=== PATIENT | female | born 1985 | race Caucasian/White ===

== ENCOUNTER 2019-12-24 15:26 | Outpatient (CLI) | payer OTHER, SELFPAY ==
--- NOTE | 2019-12-24 | ECG_ITS ---
Measurements Intervals [place] Rate: 63 P: 52 WA: 164 QRS: -14 QRSD: 97 T: -9 QT: 415 QTc: 426 Interpretive Statements SINUS RHYTHM INCOMPLETE RIGHT BUNDLE BRANCH BLOCK DELAYED PRECORDIAL R/S TRANSITION BORDERLINE ST-T WAVE ABNORMALITY- ANT/INF LEADS BORDERLINE ECG Electronically Signed On 12-24-2019 20:08:01 MOLD SETTER by Derick Dhillon D.O.
[2019-12-24 16:09] LABS: Alanine Aminotransferase 24 U/L (4-35); Albumin Level 4.2 g/dL (3.5-5.1); Alkaline Phosphatase 69 U/L (38-126); Amylase 66 U/L (30-110); Aspartate Amino Transferase 32 U/L (14-36); Bilirubin,Total 0.4 mg/dL (0.2-1.3); Blood Urea Nitrogen 19 mg/dL (7-17); Calcium 8.7 mg/dL (8.4-10.2); Carbon Dioxide 28 mmol/L (22-30); Chloride 100 mmol/L (98-107); Estimated Glomerular Filt Rate > 60; Glucose 85 mg/dL (65-105); Lipase 126 U/L (23-300); Potassium 3.8 mmol/L (3.4-5.0); Sodium 140 mmol/L (137-145)
[2019-12-24 17:01] LABS: Vitamin D 25 Hydroxy 29.7 ng/mL
[2019-12-24 17:17] LABS: Folic Acid 6.4 ng/mL (2.76->20)
== END 2019-12-24 15:27 | disposition home or self-care (01) ==
LOC: ANHLAB 15:29
PROVIDERS: PCP Nurse Practitioner; Visit Provider Nurse Practitioner
DX: R53.83 Other fatigue (principal); R10.9 Unspecified abdominal pain; M25.512 Pain in left shoulder
CPT/HCPCS: 36415; 80053; 82150; 82306; 82607; 82746; 83690; 93005

== ENCOUNTER 2020-03-22 19:09 | Emergency (ER) | payer OTHER, SELFPAY ==
--- NOTE | ~2020-03-22 | XR_ITS ---
EXAMINATION: XR foot LT min 3V EXAM DATE: 03/22/2020 20:03 INDICATION: Swelling all over left foot for one week. No known recent injury provided at this time. TECHNIQUE: Left foot dorsoplantar, lateral and oblique projections obtained and reviewed. There is n o prior study for comparison. FINDINGS: Left metatarsal bones unremarkable. There are no bony erosions identified. There are no acute fractures or dislocations identified. There is no subcutaneous gas. The soft tissue is unrema rkable. There are no radiopaque foreign bodies. IMPRESSION: 1. Unremarkable left foot exam. Reviewed, dictated and finalized at location A.
[2020-03-22 19:10] VITALS: BP 134/75; PULSE 77; RESP 16; TEMP 36.1; O2SAT 99
--- NOTE | 2020-03-22 19:54 | ED.LOWEXIN ---
HPI - Extremity Injury (Lower) General Chief Complaint: Extremity Injury, Lower Stated Complaint: foot swollen Time Seen by Provider: 03/22/20 19:33 Source: patient Mode of arrival: ambulatory Limitations: no limitations History of Present Illness HPI Narrative: This patient is a 34 year old female who presents for evaluation of left foot pain and swelling. PAtient noticed 1 week ago that she developed swelling to left inner foot. She also reports pain with walking on her foot. She denies injury, redness or fever. She states she took tylenol without improvement. Her significant other applied ice today. complaint: foot injury Related Data Allergies Allergy/AdvReac Type Severity Reaction Status Date / Time No Known Allergies Allergy Verified 03/22/20 19:12 Review of Systems Review of Systems: All systems reviewed & are unremarkable except as noted in HPI and below Constitutional: Constitutional: Denies chills and Denies fever(s) Musculoskeletal: Comments: left foot pain swelling PMFSH Social History Social History (Updated 03/22/20 @ 19:55 by Breanne Braxton MD) Smoking status: Never smoker Alcohol use details: occasional Substance use: never Gender identity (if verbalized by the patient): Female Exam Const: General: no acute distress and alert Orientation/consciousness: patient oriented x3 Eyes: EOM: EOMs intact bilaterally Resp: Effort & Inspection: normal respiratory effort Skin: General skin exam: normal color Rashes: no rashes Wounds: no wounds Neuro: General: patient oriented x3 Extrem: Other: left foot with mild tenderness to palpation medial foot and dorsum, no erythema, no significan swelling, no tenderness or swelling involving ankle. Course Reevaluation(s) Reevaluation #1: I have discussed with patient xray is unremarkable. Will treat like tendonitis Date: 03/22/20 Time: 20:57 Vital Signs Vital signs: Vital Signs Temperature 97 F L 03/22/20 19:10 Pulse Rate 77 03/22/20 19:10 Respiratory Rate 16 03/22/20 19:10 Blood Pressure 134/75 03/22/20 19:10 Pulse Oximetry 99 03/22/20 19:10 Temperature 97 F L 03/22/20 19:10 Pulse Rate 74 03/22/20 21:25 Respiratory Rate 16 03/22/20 21:25 Blood Pressure 127/72 03/22/20 21:25 Pulse Oximetry 99 03/22/20 21:25 MDM - Extremity Injury (Lower) Imaging Data Radiologist's impression: ITS Impressions Foot X-Ray 03/22/20 20:12 IMPRESSION: 1. Unremarkable left foot exam. Discharge Plan Discharge Clinical Impression: Localized swelling of left foot Patient Disposition: Home, Self-Care Condition: Stable Instructions: Antibiotic Form, Tenosynovitis (ED), Arthralgia (ED) Additional Instructions: Today you were evaluated for foot pain and swelling. Take NSAIDs such as ibuprofen, motrin or aleve for your pain and swelling. This is likely due to inflammation involving tendon or muscle. Call your primary care physician within 1 week for evaluation if symptoms do not improve. Follow-up/Referrals: Galindo,CHERYL Soto-SAGE [Primary Care Provider] - Discharge Date/Time: 03/22/20 21:26
[2020-03-22] MEDS: IBUPROFEN 600 MG TABLET PO (20:07)
[2020-03-22 21:25] VITALS: BP 127/72; PULSE 74; RESP 16; O2SAT 99
== END 2020-03-22 21:26 | disposition home or self-care (01) ==
PROVIDERS: Emergency Provider General Practice; PCP Nurse Practitioner
DX: M79.89 Other specified soft tissue disorders (principal)
CPT/HCPCS: 73630; 99283; A9270

== ENCOUNTER 2020-09-20 09:18 | Emergency (ER) | payer OTHER, SELFPAY ==
[2020-09-20 09:27] VITALS: BP 131/56; PULSE 77; RESP 16; TEMP 36.5; O2SAT 99
--- NOTE | 2020-09-20 09:38 | ED.EAR ---
HPI - Ear Problem General Chief complaint: Ear Stated complaint: Earache Time Seen by Provider: 09/20/20 09:32 Source: patient and RN notes reviewed Mode of arrival: ambulatory Limitations: no limitations History of Present Illness HPI Narrative: Patient presents today complaining of left ear pain since last night. Denies any decreased hearing or drainage from the ear. Denies any additional symptoms to include fever., Cough, nasal congestion or rhinorrhea, sore throat. Currently rates her ear pain 7/10 and has been taking Tylenol without relief. She had a left-sided tympanoplasty in August 2019, performed by Dr. Crabtree. No recent antibiotic use. MD Complaint: ear pain Related Data Allergies Allergy/AdvReac Type Severity Reaction Status Date / Time No Known Allergies Allergy Verified 09/20/20 09:32 Review of Systems Review of Systems: Narrative: CONSTITUTIONAL: Denies body aches, fever, chills, or sweats. EYES: Denies visual changes, redness, or discharge. ENT: Denies rhinorrhea, congestion, sore throat. + Left ear pain CARDIOVASCULAR: Denies chest pain, palpitations, or edema. RESPIRATORY: Denies cough or dyspnea. GASTROINTESTINAL: Denies abdominal pain, nausea, vomiting, or diarrhea. GENITOURINARY: Denies dysuria or hematuria. SKIN: Denies rash, itching, or wounds. MUSCULOSKELETAL: Denies back pain, joint pain, or myalgia. NEUROLOGIC: Denies headache, numbness, tingling, or weakness. PSYCH: Denies depression or anxiety. PMFSH Past Medical History Medical History (Updated 09/20/20 @ 09:46 by Ruth Ernst, [facility], ) Hypothyroidism Surgical History Surgical History (Updated 09/20/20 @ 09:40 by Ruth Ernst, [facility], ) History of tympanoplasty of left ear Social History Social History (Updated 03/22/20 @ 19:55 by Breanne Braxton MD) Smoking status: Never smoker Substance use: never Gender identity (if verbalized by the patient): Female Comments At time of signature, I have reviewed and agree with nursing past medical, surgical, social and family history unless otherwise noted. Please see nursing chart for further information. There is no relevant family history pertinent to the presenting complaint Exam Narrative: Exam Narrative: GENERAL: Well-appearing, well-nourished, and in no acute distress. HEAD: Normocephalic, atraumatic. EYES: EOMI. No redness or drainage. Conjunctivae normal. ENT: Mucous membranes pink and moist. Nares clear. No rhinorrhea. Right TM normal. Left ear: +tragal tenderness. TM is injected and bulging with green purulent material. Throat normal. Uvula midline. NECK: Normal AROM. Supple. No lymphadenopathy. CHEST: No respiratory distress. Clear to auscultation. HEART: Regular rate and rhythm. No murmur appreciated. Normal peripheral pulses. EXTREMITIES: Normal range of motion. No edema. SKIN: Warm, dry, no rash. Capillary refill normal. Normal skin turgor. NEURO: No focal deficits. Alert and oriented x3. Gait steady. PSYCH: Normal affect. No signs of depression or anxiety. Course Vital Signs Vital signs: Vital Signs Temperature 97.7 F 09/20/20 09:27 Pulse Rate 77 09/20/20 09:27 Respiratory Rate 16 09/20/20 09:27 Blood Pressure 131/56 L 09/20/20 09:27 Pulse Oximetry 99 09/20/20 09:27 Temperature 97.7 F 09/20/20 09:27 Pulse Rate 77 09/20/20 09:27 Respiratory Rate 16 09/20/20 09:27 Blood Pressure 131/56 L 09/20/20 09:27 Pulse Oximetry 99 09/20/20 09:27 Reviewed. Pt has been instructed to follow up with her PCP regarding her elevated blood pressure today. Medical Decision Making Differential Diagnosis Differential Diagnosis: Otitis media, otitis externa, ruptured TM, serous otitis, station tube dysfunction, cerumen impaction, URI Vital Signs Vital Signs: Vital Signs Temperature 97.7 F 09/20/20 09:27 Pulse Rate 77 09/20/20 09:27 Respiratory Rate 16 09/20/20 09:27 Blood Pressure 131/56 L 09/20/20 09:
== END 2020-09-20 09:50 | disposition home or self-care (01) ==
PROVIDERS: Emergency Provider Nurse Practitioner; PCP Nurse Practitioner Family
DX: H66.002 Acute suppurative otitis media without spontaneous rupture of ear drum, left ear (principal); E03.9 Hypothyroidism, unspecified
CPT/HCPCS: 99213; G0463

== ENCOUNTER 2021-02-23 13:30 | Emergency (ER) | payer OTHER, SELFPAY ==
[2021-02-23 13:32] VITALS: BP 143/86; PULSE 109; RESP 18; TEMP 36.1; O2SAT 100
--- NOTE | 2021-02-23 14:22 | ED.GENADULT ---
HPI - General Adult General Chief complaint: Skin/Abscess/Foreign Body Stated complaint: armpit absess Time Seen by Provider: 02/23/21 13:33 Source: patient and RN notes reviewed Mode of arrival: ambulatory Limitations: no limitations History of Present Illness HPI narrative: Patient is a 35-year-old female who presents to emergency department for evaluation of rash and discomfort to the left arm. Patient notes that it began over the last 2 days patient denies similar occurrence in the past injury or trauma fever chills notes that it is worse when she has her arm down. Denies sick contacts or individuals with similar occurrence Related Data Allergies Allergy/AdvReac Type Severity Reaction Status Date / Time No Known Allergies Allergy Verified 02/23/21 13:41 Review of Systems Review of Systems: All systems reviewed & are unremarkable except as noted in HPI and below PMFSH Past Medical History Medical History Hypothyroidism Surgical History Surgical History History of tympanoplasty of left ear Social History Social History Smoking status: Never smoker Substance use: never Gender identity (if verbalized by the patient): Female Exam Narrative: Exam Narrative: GENERAL: Well-appearing, well-nourished, and in no acute distress. HEAD: Normocephalic, atraumatic. EYES: PERRLA and EOMI. ENT: Nares clear, no rhinorrhea or epistaxis. Mucous membranes moist. EXTREMITIES: Normal range of motion. No edema. SKIN: Warm, dry, patient with an fine area that is pink-colored along the lower margin of the armpit there is no fluctuance no drainage no cellulitic lesions no drainable lesion NEURO: No focal deficits. Alert and oriented x3. Neurovascularly intact PSYCH: Normal mood and affect. Course Course Emergency Course: Patient in his room in no distress will follow with primary care for dermatology referral as necessary is afebrile nontoxic-appearing no distress and was provided with reasons to return Vital Signs Vital signs: Vital Signs Temperature 96.9 F L 02/23/21 13:32 Pulse Rate 109 H 02/23/21 13:32 Respiratory Rate 18 02/23/21 13:32 Blood Pressure 143/86 H 02/23/21 13:32 Pulse Oximetry 100 02/23/21 13:32 Temperature 96.9 F L 02/23/21 13:32 Pulse Rate 109 H 02/23/21 13:32 Respiratory Rate 18 02/23/21 13:32 Blood Pressure 143/86 H 02/23/21 13:32 Pulse Oximetry 100 02/23/21 13:32 Medical Decision Making MDM Narrative Medical decision making narrative: Patient with nonspecific rash felt appropriate for outpatient reevaluation provided with primary care referral so she can obtain a dermatology referral if necessary and for reevaluation Vital Signs Vital Signs: Vital Signs Temperature 96.9 F L 02/23/21 13:32 Pulse Rate 109 H 02/23/21 13:32 Respiratory Rate 18 02/23/21 13:32 Blood Pressure 143/86 H 02/23/21 13:32 Pulse Oximetry 100 02/23/21 13:32 Temperature 96.9 F L 02/23/21 13:32 Pulse Rate 109 H 02/23/21 13:32 Respiratory Rate 18 02/23/21 13:32 Blood Pressure 143/86 H 02/23/21 13:32 Pulse Oximetry 100 02/23/21 13:32 Discharge Plan Discharge Clinical Impression: Rash and nonspecific skin eruption Patient Disposition: Home, Self-Care Condition: Stable Instructions: Antibiotic Form, Acute Rash (ED) Additional Instructions: Follow up with primary care in the next 2-3 days to set up for re-evaluation return if symptoms worsen or concerns, any increase in redness swelling pain or fever over 100.5 Clean wound with mild soapy water. Apply antibiotic ointment and clean dressing at least three times daily Follow patient education sheet Prescriptions: New nystatin 100,000 unit/gram cream 1 applic topical BID Qty: 15 RF: 0 hydrocortisone [Cortizone-10] 1 % cream
== END 2021-02-23 14:45 | disposition home or self-care (01) ==
PROVIDERS: Emergency Provider Emergency Medicine; PCP Nurse Practitioner Family
DX: R21 Rash and other nonspecific skin eruption (principal); E03.9 Hypothyroidism, unspecified
CPT/HCPCS: 99283

== ENCOUNTER 2021-05-25 14:46 | Emergency (ER) | payer OTHER, SELFPAY ==
[2021-05-25 14:51] VITALS: BP 116/90; PULSE 76; RESP 18; TEMP 36.6; O2SAT 99
--- NOTE | 2021-05-25 15:23 | ED.URI ---
HPI - URI/Sore Throat General Chief Complaint: Upper Respiratory Infection Stated Complaint: sore throat/ear ache Source: patient and RN notes reviewed Mode of arrival: ambulatory History of Present Illness HPI Narrative: This is a 35-year-old female presented to urgent care with complaints of sore throat and ear pain to her left ear. According to patient she developed the symptoms about 3 to 4 days ago. She also informed me that she has visited her ENT regularly due to told her eardrum. Patient notes that she did not take anything at home to relieve her symptoms. The patient denies SOB, CP, palpitation, extremity numbness, lightheadedness, dizziness, constipation, diarrhea, chills, or fever. MD elicited complaint: sore throat Related Data Allergies Allergy/AdvReac Type Severity Reaction Status Date / Time No Known Allergies Allergy Verified 02/23/21 13:41 Review of Systems Review of Systems: A 14 organ system Review of Systems was performed and pertinent positives included in the HPI, otherwise remaining ROS is negative. [facility] Past Medical History Medical History Hypothyroidism Surgical History Surgical History History of tympanoplasty of left ear Family History Family History (Updated 05/25/21 @ 15:24 by MICAELA Mack) Other Family history non-contributory Social History Social History Smoking status: Never smoker Alcohol use details: occasional Substance use: never Gender identity (if verbalized by the patient): Female Exam Narrative: GENERAL: This is a well-nourished, well-developed patient, in no apparent distress. HEAD: normocephalic, atraumatic. EYES: PERRL. Sclera clear/white. Vision is grossly intact. EARS: External ears normal, auditory canals clear , TMs with perforation which is chronic and erythema with edema. Hearing grossly intact. NOSE: External nose normal with no obvious nasal discharge, nares without redness, no rhinorrhea. THROAT: Mucous membranes moist, posterior pharynx clear. NECK: Neck supple, non-tender without lymphadenopathy, masses or thyromegaly. CARDIOVASCULAR: Regular rate and rhythm without murmurs, gallops, or rubs. RESPIRATORY: Clear to auscultation. Breath sounds equal bilaterally. No wheezes, rales, or rhonchi. GASTROINTESTINAL: Abdomen soft, non-tender, nondistended. Bowel sounds are active. No hepato-splenomegaly, or palpable masses. No guarding. SKIN: warm, intact with no suspicious lesions or rash, good texture and turgor. NEURO: awake, alert, and oriented to person, place and time. There were no obvious focal neurologic abnormalities. Steady gait EXTREMITIES: Normal range of motion. No edema. No calf tenderness. Negative Homans sign bilaterally. BACK: Nontender without deformity or crepitance. No flank tenderness. Course Course Emergency Course: Patient will be treated with otitis media with Augmentin 875 x 7 days Vital Signs Vital signs: Vital Signs Temperature 97.8 F 05/25/21 14:51 Pulse Rate 76 05/25/21 14:51 Respiratory Rate 18 05/25/21 14:51 Blood Pressure 116/90 05/25/21 14:51 Pulse Oximetry 99 05/25/21 14:51 Temperature 97.8 F 05/25/21 14:51 Pulse Rate 76 05/25/21 14:51 Respiratory Rate 18 05/25/21 14:51 Blood Pressure 116/90 05/25/21 14:51 Pulse Oximetry 99 05/25/21 14:51 MDM - URI/Sore Throat Differential Diagnosis Differential diagnosis: Likely upper respiratory infection, otitis media, sinusitis, viral infection and pharyngitis Lab Data Attestation: I reviewed the patient's lab results. Labs: Strep Screen Presumptive Negative *(Reference Range: Negative)* Discharge Plan Discharge Clinical Impression: Otitis media Qualifiers: Otitis media type: unspecified L
== END 2021-05-25 15:28 | disposition home or self-care (01) ==
PROVIDERS: Emergency Provider Nurse Practitioner; PCP Nurse Practitioner Family
DX: H66.92 Otitis media, unspecified, left ear (principal); J06.9 Acute upper respiratory infection, unspecified; E03.9 Hypothyroidism, unspecified
CPT/HCPCS: 87081; 87880; 99213; G0463

== ENCOUNTER 2021-07-05 13:42 | Outpatient (CLI) | payer OTHER, SELFPAY ==
--- NOTE | ~2021-07-05 | XR_ITS ---
XR abdomen obstructive series DATE: 07/05/2021 14:07 INDICATION: Bilateral low abdominal pain for 3 months TECHNIQUE: Supine and upright AP views COMPARISON: None FINDINGS: There is levoscoliosis of the thoracolumbar spine. The psoas shadows are intact. No visceromegaly is evident. No evidence of bowel obstruction. No signi ficant abnormal calcification is detected. No intraperitoneal free air. IMPRESSION: No significant abnormality Reviewed, dictated and finalized at Location [facility]. Reviewed, dictated and finalized at location A. IMPRESSION: No significant abnormality
== END 2021-07-05 13:43 | disposition home or self-care (01) ==
LOC: ANHIMG 13:50
PROVIDERS: PCP Nurse Practitioner Family; Visit Provider Nurse Practitioner Family
DX: R10.9 Unspecified abdominal pain (principal)
CPT/HCPCS: 74019

== ENCOUNTER 2022-09-13 12:31 | Outpatient (CLI) | payer OTHER, SELFPAY ==
--- NOTE | ~2022-09-13 | US_ITS ---
EXAMINATION: US pelvic complete w TV DATE: 09/13/2022 13:10 INDICATION: Left pelvic pain Comparison:Ultrasound dated 10/19/2011 TECHNIQUE: Multiple transabdominal and endovaginal sonographic images of the pelvis performed. FINDINGS: The uterus measures 9.9 x 5.1 x 6.2 cm. There is nabothian cyst measuring 12 mm. The endome trial complex measures 1.3 cm. The right ovary measures 4 x 2.2 x 3.3 cm and the left ovary measures 3.2 x 1.9 x 1.9 cm. There is a right ovarian cyst measuring 1.8 cm. There are small follicles in each ovary. Normal doppler signal i n both ovaries. There is no free fluid in the pelvis. There are no abnormal masses seen on either side. IMPRESSION: 1. Endometrial thickening measuring 1.3 cm. 2: Right ovarian cyst measuring 1.8 cm. Reviewed, dictated and finalized at location B. PING ORDER CLERK
== END 2022-09-13 12:32 | disposition home or self-care (01) ==
LOC: ANHIMG 12:38
PROVIDERS: Visit Provider Obstetrics & Gynecology
DX: R10.32 Left lower quadrant pain (principal); R10.2 Pelvic and perineal pain; R93.89 Abnormal findings on diagnostic imaging of other specified body structures
CPT/HCPCS: 76830; 76856

== ENCOUNTER 2025-04-20 08:31 | Emergency (ER) | payer OTHER, SELFPAY ==
[2025-04-20 08:34] VITALS: BP 123/90; PULSE 66; RESP 16; TEMP 36.8; O2SAT 99
--- NOTE | 2025-04-20 08:35 | ED_ITS ---
HPI - Ear Problem General Chief complaint: Ear Stated complaint: Ear Pain Source: patient and RN notes reviewed Mode of arrival: ambulatory Limitations: no limitations History of Present Illness HPI Narrative: Patient is a 39 year old female who presents to the [facility] with complaints of left ear pain. She states that she developed a pain on Sunday and it has continued to worsen in severity over the last few days. She denies ear drainage. Denies hearing difficulty. Denies recent fevers. Denies recent cough or congestion. Related Data Home Medications ?Medication ?Instructions ?Recorded ?Confirmed ?Last Taken ?Type levothyroxine 100 mcg capsule 100 mcg PO DAILY 05/09/22 04/20/25 Unknown History Allergies Allergy/AdvReac Type Severity Reaction Status Date / Time No Known Allergies Allergy Verified 04/20/25 08:41 Review of Systems Review of Systems: CONSTITUTIONAL: Denies fever, chills, or sweats. EYES: Denies visual changes, redness, or discharge. ENT: Reports otalgia but denies sore throat CARDIOVASCULAR: Denies chest pain, palpitations, or edema. RESPIRATORY: Denies cough or dyspnea. GASTROINTESTINAL: Denies abdominal pain, nausea, vomiting, or diarrhea. GENITOURINARY: Denies dysuria or hematuria. SKIN: Denies rash or itching. MUSCULOSKELETAL: Denies back pain, joint pain, or myalgia. NEUROLOGIC: Denies headache, numbness, or weakness. Pertinent positives per HPI. [facility] Past Medical History Medical History History of irregular menstrual bleeding Hypothyroidism Surgical History Surgical History History of gynecological procedure (05/10/11) suction D&C missed AB H/O tubal ligation (07/08/12) History of tympanoplasty of left ear Family History Family History Other Family history non-contributory Social History Social History Smoking status: Never smoker Alcohol intake: current Alcohol use details: occasional 6-8 month Substance use: never Substance use type: does not use Living arrangements: other Additional living arrangements comments: Gender identity (if verbalized by the patient): Female Sexual Orientation (if Verbalized by the Patient): Straight or Heterosexual Comments At the time of my signature, I reviewed and agree with the nursing past medical, surgical, social, and family history. There is no relevant family history pertinent to the patient complaint. Exam Narrative: GENERAL: This is a well-nourished, well-developed patient, in no apparent distress. HEAD: normocephalic, atraumatic. EYES: Sclera clear/white. Vision is grossly intact. EARS: External ears normal, auditory canals clear and without drainage. Right TM normal without perforation. Left TM erythematous. Hearing grossly intact. NOSE: External nose normal with no obvious nasal discharge, nares without redness, no rhinorrhea. THROAT: Mucous membranes moist, posterior pharynx clear. NECK: Neck supple, non-tender without lymphadenopathy, masses or thyromegaly. CARDIOVASCULAR: Regular rate and rhythm without murmurs, gallops, or rubs. RESPIRATORY: Clear to auscultation. Breath sounds equal bilaterally. No wheezes, rales, or rhonchi. GASTROINTESTINAL: Abdomen soft, non-tender, nondistended. Bowel sounds are active. No hepato-splenomegaly, or palpable masses. No guarding. SKIN: warm, intact with no suspicious lesions or rash, good texture and turgor. NEURO: awake, alert, and oriented to person, place and time. There were no obvious focal neurologic abnormalities. Course Course Level of Care: Express Care Visit Vital Signs Vital signs: Vital Signs Temperature 98.2 F 04/20/25 08:34 Pulse Rate 66 04/20/25 08:34 Respiratory Rate 16 04/20/25 08:34 Blood Pressure 123/90 04/20/25 08:34 Pulse Oximetry 99 04/20/25 08:34 Oxygen Delivery Room Air 04/20/25 08:34 Temperature 98.2 F 04/20/25 08:34 Pulse Rate 66 04/20/25 08:34 Respiratory Rate 16 04/20/25 08:34 Blood Pressure 123/90 04/20/25 08:34 Pulse Oximetry 99 04/20/25 08:34 Oxygen Delivery Room Air 04/20/25 08:34 Reviewed Medical Decision Making MDM Narrative Medical decision making narrative: Take antibiotics as directed. May given ibuprofen and/or Tylenol as needed for pain and/or fever. Follow up with primary care provider in 7-10 days to have ear rechecked. Differential Diagnosis Differential Diagnosis: otitis media, otitis externa, cerumen impaction Vital Signs Vital Signs: Vital Signs Temperature 98.2 F 04/20/25 08:34 Pulse Rate 66 04/20/25 08:34 Respiratory Rate 16 04/20/25 08:34 Blood Pressure 123/90 04/20/25 08:34 Pulse Oximetry 99 04/20/25 08:34 Oxygen Delivery Room Air 04/20/25 08:34 Temperature 98.2 F 04/20/25 08:34 Pulse Rate 66 04/20/25 08:34 Respiratory Rate 16 04/20/25 08:34 Blood Pressure 123/90 04/20/25 08:34 Pulse Oximetry 99 04/20/25 08:34 Oxygen Delivery Room Air 04/20/25 08:34 Critical Care Time Critical Care Time Critical Care Time: No Discharge Plan Discharge Clinical Impression: Left acute otitis media Patient Disposition: Home Condition: Stable Instructions: Antibiotic Form, Ear Infection (ED) Additional Instructions: Take antibiotics as directed. May given ibuprofen and/or Tylenol as needed for pain and/or fever. Follow up with primary care provider in 7-10 days to have ear rechecked. Patient Language: Upper Sorbian Prescriptions: New amoxicillin-pot clavulanate 875-125 mg tablet 1 tablet PO Q12H 10 Days Qty: 20 0RF No Action levothyroxine 100 mcg capsule 100 mcg PO DAILY Follow-up/Referrals: PHYSICIAN,AIRCRAFT ENGINE TECHNICIAN [Primary Care Provider] - Stand Alone Forms: Work/School Release IP Time of Disposition: 08:49
== END 2025-04-20 08:51 | disposition home or self-care (01) ==
PROVIDERS: Emergency Provider Nurse Practitioner
DX: H66.92 Otitis media, unspecified, left ear (principal); E03.9 Hypothyroidism, unspecified
CPT/HCPCS: 99213; G0463